=== PATIENT | female | born 1985 | race Caucasian/White ===

== ENCOUNTER 2018-04-24 03:38 | Outpatient (CLI) | payer MEDICAID ==
[~2018-04-24 03:38] MED LIST: HYDR-2514 PO; PRED10TA PO
== END 2018-04-24 23:59 | disposition home or self-care (01) ==
LOC: DIABETIC 03:38
PROVIDERS: ATTEND Surgery
DX: E66.01 Morbid (severe) obesity due to excess calories (principal); K21.9 Gastro-esophageal reflux disease without esophagitis
CPT/HCPCS: 97802

== ENCOUNTER 2018-05-13 09:14 | Outpatient (CLI) | payer MEDICAID | END 2018-05-13 23:59 | disposition home or self-care (01) | LOC: DIABETIC 09:14 | PROVIDERS: ATTEND Surgery | DX: E66.01 Morbid (severe) obesity due to excess calories (principal); K21.9 Gastro-esophageal reflux disease without esophagitis | CPT/HCPCS: 97802 ==

== ENCOUNTER 2018-06-10 04:30 | Outpatient (CLI) | payer MEDICAID | END 2018-06-10 23:59 | disposition home or self-care (01) | LOC: DIABETIC 04:30 | PROVIDERS: ATTEND Surgery | DX: E66.01 Morbid (severe) obesity due to excess calories (principal); K21.9 Gastro-esophageal reflux disease without esophagitis | CPT/HCPCS: 97802 ==

== ENCOUNTER 2018-07-08 03:12 | Outpatient (CLI) | payer MEDICAID | END 2018-07-08 23:59 | disposition home or self-care (01) | LOC: DIABETIC 03:12 | PROVIDERS: ATTEND Surgery | DX: E11.9 Type 2 diabetes mellitus without complications (principal) | CPT/HCPCS: G0108 ==